=== PATIENT | female | born 1985 | race Caucasian/White ===

== ENCOUNTER 2025-01-14 11:14 | Emergency (ER) | payer OTHER, SELFPAY ==
[2025-01-14 11:21] VITALS: BP 166/116; PULSE 90; TEMP 36.6; O2SAT 99; BMI 45.6
--- NOTE | 2025-01-14 12:21 | CT_ITS ---
The [address] [address] Patient Name: ANANDA VOSS MRN: [id number] date: 1985 Sex: F Assigned Patient Location: ER Current Patient Location: ER Accession/Order Number: [id number] Exam Date: 01/14/2025 12:40 Report Date: 01/14/2025 12:57 At the request of: ARTURO FOLEY MD Procedure: CT head/brain wo con CT BRAIN WITHOUT CONTRAST: CLINICAL HISTORY: Bilateral headache COMPARISON: None TECHNIQUE: Contiguous axial unenhanced images were obtained through the brain. This CT exam was performed using one or more following dose reduction techniques: Automated exposure control, adjustment of the mA and/or kV according to patient size, or use of iterative reconstruction technique. FINDINGS: There is no evidence of midline shift, intra or extra-axial fluid collection, hemorrhage or CT evidence of large vascular distribution stroke. Intracranial vascular calcifications Visualized intraorbital contents appear unremarkable. Mild to moderate ethmoid sinus and sphenoid sinuses mucosal thickening The surrounding soft tissues are normal. CT/CT head/brain wo con IMPRESSION: NO ACUTE INTRACRANIAL ABNORMALITY. Impression dictated by: Atif England M.D. 01/14/2025 12:57 PM Dictation Location: [place] [address] Electronically authenticated by: [id number] Y Date: 01/14/2025 12:57
[2025-01-14] MEDS: KETOROLAC TROMETHAMINE 60 MG/2 ML VIAL IM (12:29)
[2025-01-14 13:15] VITALS: BP 220/130
[2025-01-14 13:28] VITALS: BP 220/130
[2025-01-14] MEDS: HYDRALAZINE HCL 20 MG/ML VIAL 10 MG IVP (13:28)
[2025-01-14 13:48] VITALS: BP 180/114; PULSE 84; O2SAT 96
[2025-01-14] MEDS: MORPHINE SULFATE 4 MG/ML VIAL IV (13:53)
--- NOTE | 2025-01-14 13:54 | ED.GENADUL1 ---
HPI HPI - General Adult General Chief complaint: Headache Stated complaint: HEADACHE Time Seen by Provider: 01/14/25 12:07 Source: patient Mode of arrival: walk-in History of Present Illness HPI narrative: 39-year-old female presents for bitemporal headache and the pain goes across her eyes and just below her eyes as well. She has had this for the last day or 2 and there is no trauma. She feels a bit congested. No vomiting or diarrhea or stiff neck or fever. Related Data Home Medications ?Medication ?Instructions ?Recorded ?Confirmed amlodipine 5 mg tablet 5 mg PO DAILY 01/14/25 01/14/25 docusate sodium 100 mg capsule 100 mg PO BID 01/14/25 01/14/25 ergocalciferol (vitamin D2) 1,250 1,250 mcg PO QWEEK 01/14/25 01/14/25 mcg (50,000 unit) capsule gabapentin 100 mg capsule 100 mg PO BID 01/14/25 01/14/25 hydralazine 25 mg tablet 25 mg PO BID 01/14/25 01/14/25 hydrocortisone 2.5 % topical cream 1 applic topical DAILY 01/14/25 01/14/25 liraglutide 0.6 mg/0.1 mL (18 mg/3 0.6 mg subcut DAILY 01/14/25 01/14/25 mL) subcutaneous pen injector (Get[employer] 2-Giuliano) magnesium oxide 400 mg (241.3 mg 400 mg PO DAILY 01/14/25 01/14/25 magnesium) tablet Previous Rx's ?Medication ?Instructions ?Recorded amoxicillin 500 mg capsule 500 mg PO TID 10 days #30 caps 01/14/25 Allergies Allergy/AdvReac Type Severity Reaction Status Date / Time acetaminophen (From Vicodin) Allergy Severe Nausea Verified 01/14/25 11:27 hydrocodone (From Vicodin) Allergy Severe Nausea Verified 01/14/25 11:27 sertraline (From Zoloft) Allergy Severe Hives Verified 01/14/25 11:27 Opioid HPI Opioid Management Most Recent Opioid Data: Last Pain Scale 5 Today, 14:14 Last ED Pain Assessment Today, 14:14 Last MAR Pain Assessment Today, 12:29 Review of Systems ROS Narrative A ten point review of systems is negative except as noted above. PFSH PFSH Social History Little interest or pleasure in doing things: not at all Feeling down, depressed, or hopeless: not at all Exam Narrative Exam Narrative: Nurses note and vital signs reviewed and patient is not hypoxic. General: The patient appears well and in no apparent distress. Patient is resting comfortably on cart. Skin: Warm, dry, no pallor noted. There is no rash noted. Head: Normocephalic, atraumatic; neck supple, no nuchal rigidity Eye: Normal conjunctiva, no drainage, EOMI. PERRL Ears, Nose, Mouth, and Throat: oral mucosa is moist. Nares patent. Cardiovascular: Regular Rate and Rhythm Respiratory: Patient is in no distress, no accessory muscle use, lungs are clear to auscultation, no wheezing, rales or rhonchi Back: non-tender GI: Soft and nontender Musculoskeletal: The patient has no evidence of calf tenderness, no pitting edema, symmetrical pulses noted bilaterally Neurological: A&O x4, normal speech; upper and lower extremity strength 5 out of 5 and symmetric Psychiatric: Cooperative Constitutional Vital Signs, click to edit/add: Last Vital Signs Temp 97.9 F 01/14/25 11:21 Pulse 84 01/14/25 13:48 Resp 18 01/14/25 13:48 BP 171/93 H 01/14/25 14:13 Pulse Ox 96 01/14/25 13:48 O2 Del Method Room Air 01/14/25 11:21 Course Vital Signs Vital signs: Vital Signs Temperature 97.9 F 01/14/25 11:21 Pulse Rate 90 01/14/25 11:21 Respiratory Rate 18 01/14/25 11:21 Blood Pressure 166/116 H 01/14/25 11:21 Pulse Oximetry 99 01/14/25 11:21 Oxygen Delivery Method Room Air 01/14/25 11:21 Temperature 97.9 F 01/14/25 11:21 Pulse Rate 84 01/14/25 13:48 Respiratory Rate 18 01/14/25 13:48 Blood Pressure 171/93 H 01/14/25 14:13 Pulse Oximetry 96 01/14/25 13:48 Oxygen Delivery Method Room Air 01/14/25 11:21 Medical Decision Making MDM Narrative Medical decision making narrative: Ethmoid sinusitis is noted on the CAT scan and she is prescribed amoxicillin. Treatment diagnosis and follow-up were discussed with the patient. The patient initially had elevated blood pressure and had not yet taken her afternoon medications. She was given 10 mg of IV hydralazine with good improvement in her blood pressure and she is able to be discharged home. Treatment diagnosis and follow-up were discussed with the patient. Differential Diagnosis Differential Diagnosis: Sinusitis, tension headache, intracranial hemorrhage Imaging Data CT scan - head: Radiologist's impression: ITS Impressions Head CT 01/14/25 12:21 IMPRESSION: NO ACUTE INTRACRANIAL ABNORMALITY. Impression dictated by: Atif England M.D. 01/14/2025 12:57 PM Dictation Location: [place] [address] Electronically authenticated by: [id number] Y Date: 01/14/2025 12:57 Procedure: CT head/brain wo con CT BRAIN WITHOUT CONTRAST: CLINICAL HISTORY: Bilateral headache COMPARISON: None TECHNIQUE: Contiguous axial unenhanced images were obtained through the brain. This CT exam was performed using one or more following dose reduction techniques: Automated exposure control, adjustment of the mA and/or kV according to patient size, or use of iterative reconstruction technique. FINDINGS: There is no evidence of midline shift, intra or extra-axial fluid collection, hemorrhage or CT evidence of large vascular distribution stroke. Intracranial vascular calcifications Visualized intraorbital contents appear unremarkable. Mild to moderate ethmoid sinus and sphenoid sinuses mucosal thickening The surrounding soft tissues are normal. IMPRESSION: NO ACUTE INTRACRANIAL ABNORMALITY. Impression dictated by: Atif England M.D. 01/14/2025 12:57 PM Discharge Plan Discharge Chief Complaint: Headache Clinical Impression: Ethmoid sinusitis Patient Disposition: Home, Self-Care Time of Disposition Decision: 14:16 Condition: Good Mode of Transportation: Private Vehicle Prescriptions / Home Meds: New amoxicillin 500 mg capsule 500 mg PO TID 10 Days Qty: 30 0RF No Action amlodipine 5 mg tablet 5 mg PO DAILY docusate sodium 100 mg capsule 100 mg PO BID ergocalciferol (vitamin D2) 1,250 mcg (50,000 unit) capsule 1,250 mcg PO QWEEK gabapentin 100 mg capsule 100 mg PO BID hydralazine 25 mg tablet 25 mg PO BID hydrocortisone 2.5 % cream 1 applic TOPICAL DAILY liraglutide [Victoza 2-Giuliano] 0.6 mg/0.1 mL (18 mg/3 mL) pen injector 0.6 mg SUBCUT DAILY magnesium oxide 400 mg (241.3 mg magnesium) tablet 400 mg PO DAILY Print Language: Korean Instructions: Sinusitis (ED) Referrals: ILAN NG [Primary Care Provider] - 1 week
[2025-01-14 14:13] VITALS: BP 171/93
== END 2025-01-14 14:38 | disposition home or self-care (01) ==
PROVIDERS: Emergency Provider Emergency Medicine
DX: J32.2 Chronic ethmoidal sinusitis (principal); I10 Essential (primary) hypertension; Z79.899 Other long term (current) drug therapy
CPT/HCPCS: 70450; 96372; 96374; 96375; 99285; J0360; J1885; J2270